=== PATIENT | male | born 1995 | race Caucasian/White ===

== ENCOUNTER 2017-07-26 18:18 | Emergency (ER) | payer MEDICAID ==
[~2017-07-26] VITALS: Ht 162.6 cm; Wt 136.1 kg
[~2017-07-26 18:18] MED LIST: ADDERALL20 MG PO; ADDERALL7.5 MG PO; ELIMITE 5%60 GM/TUBE TP; KEFLEX 250250 MG/5 M PO; KEFLEX 250MG.250 MG PO; ZOFRAN4 MG PO; Zofran4 MG PO
--- NOTE | 2017-07-26 18:33 | Emergency Room Report ---
History of Present Illness Time Seen by 1832 Presenting Problem in Triage Pt arrived: Presenting Problem: Onset of symptoms date/time:/ or onset unknown for: Treatment Prior to Arrival: [employer] Provided by: Sepsis Risk Assessment: Temp: B/P: MAP: Pulse: Resp: Recent fever? Clinical Suspician of Infection? Mental Status: Sepsis Risk: Have you (or family members/close friends) recently traveled outside the [place]? If Yes, where/when: Have you had exposure to infectious disease within the past month? TB? Other? 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 Worse with bending and lifting. There is no swelling no nausea no vomiting no abdominal pain. There is no radiating pain to the lower extremity weakness or numbness or tingling. Is no loss of urine and bowel control. No testicular mass or penile discharge. Source patient, RN notes reviewed Exam Limitations no limitations ALLERGIES Coded Allergies: NO KNOWN ALLERGIES (07/26/17) Home Medications Active Scripts Ondansetron (Zofran Odt) 4 MG PO Q6HP PRN nausea and vomiting 7 Days Prov: 03/11/15 History Medical History General Angina: No CT: No Hypertension? Yes Hyperlipidemia? No CHF? No COPD? No Asthma? Yes CVA? No Seizures? No Diabetes? No GB Disease: No Hepatitis? No MRSA? No TB? No Cancer? 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 Tonsils Family History Family Hx Diabetes No Hypertension No Cancer No TB No Social History Alcohol Alcohol: No Review of Systems All Other Systems Reviewed and Negative Constitutional no symptoms reported Eyes no symptoms reported ENT no symptoms reported. Respiratory no symptoms reported Cardiovascular no symptoms reported Gastrointestinal no symptoms reported Genitourinary no symptoms reported. Musculoskeletal see HPI, joint pain Skin no symptoms reported Psychiatric/Neurological no symptoms reported Physical Exam Vital Signs Vital Signs Date Time Temp Pulse Resp B/P Pulse O2 O2 Flow FiO2 Ox Delivery Rate 07/26 1824 98.3 85 18 152/95 99 - WBC >12,000 or <4,000 or 10% bands? 2 or more SIRS Criteria Met? B/P:152/95 MAP:114 Creatinine >2.0? UA output<0.5ml/kg/hr for 2 hrs? Platelet count >100,000? Lactate >2.0mmol/1? INR >1.2 or PTT > than 60 sec? Evidence of Organ Dysfunction? Provider documented clinical suspician of infection? N Sepsis Criteria Count: 0 Sepsis Risk: Low Sepsis Risk General Appearance normal appearance, WD/WN Eye Exam - bilateral eye normal exam, bilateral eye PERRL, bilateral eye EOMI Ear, Nose, Throat hearing grossly normal, normal ENT inspection Neck normal inspection, non-tender, supple, full range of motion Respiratory Status Yes: trachea midline, chest symmetrical, non tender chest. No: respiratory distress. Lung Sounds bilateral: normal breath sounds, lungs clear. Cardiovascular normal exam, regular rate/rhythm, no peripheral edema, no gallop, no JVD, no murmur, no rub, normal peripheral pulses Peripheral Pulses Pulses normal Yes Gastrointestinal normal bowel sounds, normal exam, non tender, soft, no organomegaly Back normal inspection, no CVA tenderness, no vertebral tenderness Extremities normal range of motion, normal inspection, normal capillary refill, no calf tenderness, no pedal edema, AREA OF MAXIMUM TENDERNESS OVER THE INGUINAL LIGAMENT. nO PALPABLE MASSES HERNIA. pAIN WAS MAXIMUM AT 90 DEGREE HIP FLEXION. Male Genitalia normal genitalia, no hernia, circumcised, NORMAL PENIS CIRCUMCISED NO DISCHARGE. nORMAL TESTICLES NO HERNIA. 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 Medical Decision Making LABS/Meds/Orders Pt receiving controlled substance in ED? No Departure Departure Time of Disposition 1840 Disposition DC Home or Self Care(routine) Clinical Impression Primary Impression: Inguinal strain Secondary Impressions: Intertrigo Condition STABLE Referrals Rach SIMPSON,Tal Brunson (Family) Additional Instructions observe for signs of nausea vomiting and abdominal pain OBSERVE Weakness and numbness of the lower extremity REST MOTRIN 600 MG OFF WORK X 3 DAY The patient reportedly to me that the pain is worse when he bends and lifts. He is to avoid any movement causes pain. Follow-up with the primary care physician in the morning. Discharge Counseling Counseled pt/family regarding diagnosis, medications/RX, home care, follow up needs Prescriptions Current Visit Scripts Ibuprofen (MOTRIN 800MG (generic) Tablet) 800 MG PO Q8HP PRN PAIN #21 TAB NYSTATIN (Nystatin Topical Powder 30GM) 30 GM TP Q6 #1 POW Ref 1 ED Critical Care Critical Care No If Critical Care minutes are documented, the time involved in the performance of seperately reportable procedures was not counted toward critical care time documented. I directly delivered medical care to this critically ill and/or injured patient. Timely evaluation and treatment was necessary to address the significant organ system(s) dysfunction present in this patient. at [id number]
[2017-07-26] MEDS ORDERED: NYSTATIN TO30 GM/BOT TP (18:44)
[2017-07-26] MEDS ORDERED: IBU800 MG PO (18:44)
[2017-07-26 18:54] VITALS: BP 152/95
== END 2017-07-26 18:57 | disposition home or self-care (01) ==
LOC: ER 18:18
DX: K40.90 Unilateral inguinal hernia, without obstruction or gangrene, not specified as recurrent (principal); I10 Essential (primary) hypertension; J45.909 Unspecified asthma, uncomplicated; E66.01 Morbid (severe) obesity due to excess calories; Z68.43 Body mass index [BMI] 50.0-59.9, adult

== ENCOUNTER 2017-08-09 19:40 | Emergency (ER) | payer MEDICAID ==
[~2017-08-09] VITALS: Ht 162.6 cm; Wt 122.5 kg
[~2017-08-09 19:40] MED LIST changes: +IBU800 MG PO; +NYSTATIN TO30 GM/BOT TP
--- NOTE | 2017-08-09 20:15 | Emergency Room Report ---
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 N Clinical Suspician of Infection? N Mental Status: 1 - Regular (Normal Baseline) Sepsis Risk:Possible Sepsis Risk Have you (or family members/close friends) recently traveled outside the [place]? N If Yes, where/when: Have you had exposure to infectious disease within the past month? N TB? Other? Specify: Source patient, RN notes reviewed, family, old records Exam Limitations no limitations Comment over the last week with feeling dizzy and turner with no neuro sx and no fever and dizzyness inc with mov Cardiac Chest Pain Chest pain indicative of cardiac No Timing/Duration this evening Severity moderate ALLERGIES Coded Allergies: No Known Allergies (08/09/17) Home Medications Reported Medications No Known Home Medications History Medical History General CAD? No Angina: No AL: No Hypertension? Yes Hyperlipidemia? No CHF? No DVT? No PE? No COPD? No Asthma? Yes Anemia? No GERD? No Gastric ulcers? No GI Bleed? No Hernia? No Thyroid Problems? No Hypothyroidism? No CVA? No Seizures? No Diabetes? No Renal Insuffiency? No End Stage Renal Disease? No UTI? No Stones? No BPH? No GB Disease: No Nephritic Syndrome? No Asplenia? No Hepatitis? No Sickle Cell Disease? No Arthritis? No Migraines? No Cataracts? No Glaucoma? No MRSA? No HIV? No TB? No Anxiety? No Depression? No Cancer? No More? 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 Tonsils Family History Family Hx Diabetes No Hypertension No Cancer No TB No Social History Smoking Hx Smoker: Never Smoker Tobacco: No Alcohol Alcohol: No Drugs none Review of Systems All Other Systems Reviewed and Negative Constitutional denies fever Eyes denies drainage ENT denies: ear discharge, epistaxis, throat pain. Respiratory denies cough, denies shortness of breath, denies wheezing Cardiovascular see HPI, chest pain, denies palpitations, denies syncope Gastrointestinal see HPI, denies abdominal pain, nausea, denies vomiting Genitourinary denies: dysuria, frequency, hesitancy, hematuria. Musculoskeletal denies back pain, denies joint pain, denies neck pain Skin denies rash Psychiatric/Neurological see HPI, headache, denies seizure Physical Exam Vital Signs Vital Signs Date Time Temp Pulse Resp B/P Pulse O2 O2 Flow FiO2 Ox Delivery Rate 08/093 87 18 119/73 95 08/09 2029 98.6 105 18 179/117 95 08/09 1955 98.6 126 20 154/126 98 08/09 1950 98.7 135 20 150/100 99 - WBC >12,000 or <4,000 or 10% bands? 2 or more SIRS Criteria Met? B/P:179/117 MAP:135 Creatinine >2.0? UA output<0.5ml/kg/hr for 2 hrs? Platelet count >100,000? Lactate >2.0mmol/1? INR >1.2 or PTT > than 60 sec? Evidence of Organ Dysfunction? Provider documented clinical suspician of infection? N Sepsis Criteria Count: 2 Sepsis Risk: Possible Sepsis Risk General Appearance no apparent distress Eye Exam - bilateral eye PERRL, bilateral eye EOMI Ear, Nose, Throat normal ENT inspection Neck supple Respiratory Status No: respiratory distress. Lung Sounds bilateral: lungs clear. 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 No Results/Orders Laboratory Tests 08/09/172106: Urine Color YELLOW, Urine Appearance CLEAR, Urine pH 7.5, Ur Specific [place] 1.015, Urine Protein NEGATIVE, Urine Ketones NEGATIVE, Urine Blood TRACE-INTACT, Urine Nitrate NEGATIVE, Urine Bilirubin NEGATIVE, Urine Urobilinogen 0.2, Ur Leukocyte Esterase NEGATIVE, Urine RBC OCC, Urine WBC OCC, Ur Squamous Epith Cells OCC, Amorphous Sediment 1+, Urine Bacteria 1+, Urine Mucus 1+, Urine Glucose NEGATIVE 08/09/172034: Hemoglobin A1c 5.1 08/09/172034: Sodium 137, Potassium 3.7, Chloride 99, Carbon Dioxide 32, BUN 13, Creatinine 0.9, Estimated Creat Clear 223 H, Estimated GFR (MDRD) 106, Glucose 107 H, Calcium 9.6, Total Bilirubin 0.4, AST 20, ALT 41, Alkaline Phosphatase 100, Creatine Kinase 64, CK-MB (CK-2) Rel Index 0.8, CK and CKMB Interp < 0.5, Troponin I < 0.02, Total Protein 8.6 H, Albumin 4.3, Globulin 4.3 H, Albumin/ Globulin Ratio 1.0 L, WBC 9.9, RBC 5.26, Hgb 15.8, Hct 46.3, MCV 88.0, RDW 12.5 , Plt Count 333, MPV 6.9 L, Gran % 69.8, Gran # 6.9, Lymphocytes % 24.6, Monocytes % 4.6, Eosinophils % 0.6, Basophils % 0.4, Lymphocytes # 2.4, Monocytes # 0.5, Eosinophils # 0.1, Basophils # 0.0, PUBS MCHC 34.2, MCH 30.1 Current Medication Orders Sig/Julian Start time Last Medication Dose Route Stop Time Status Admin Clonidine HCl 0.1 MG ONCE ONE 08/09 2145 DC 08/09 PO 08/09 Sodium Chloride 10 ML PRN PRN 08/09 2015 AC IV 08/10 2007 Orders Procedure Date/time Status DIET-NOTHING BY MOUTH 08/[address] SINUS (MAX-FACIAL W/O CONT) 08/[address] HEAD W/O CONTRAST 08/[address] SCAN REQ 08/09 2037 Complete URINALYSIS/COMPLETE 08/09 2036 Complete GLYCOHEMOGLOBIN (A1C) 08/09 2036 Complete CHEST-PORTABLE 08/09 2010 Active 12 LEAD EKG-MARCEL (INITIAL) 08/09 2007 Active ELECTROCARDIOGRAM REQUEST 08/09 2007 Active IV SALINE LOCK 08/09 2007 Active COMPLETE METABOLIC PANEL 08/09 2007 Complete CBC WITH AUTO DIFF 08/09 2007 Complete CARDIAC ENZYMES 08/09 2007 Complete CM/EKG CM/emulsion coater Rhythm Sinus Tachycardia EKG non-spec. ST/Twave chgs XRAY/CT/US XRAY/CT/US 1 CT head, sinus CT interpretation by discussed w/radiologist Time results known: 2136 CT Results normal/NAD XRAY/CT/US 2 XRAY chest XR interpretation by reviewed by me Xray Results normal/NAD Departure Departure Time of Disposition 2220 Disposition DC Home or Self Care(routine) Clinical Impression Primary Impression: Dizziness Secondary Impressions: HTN (hypertension) Qualifiers: Hypertension type: unspecified Qualified Code: I10 - Essential ( primary) hypertension Condition STABLE Referrals Rach SIMPSON,Tal Brunson (Family) Patient Instructions DI for Dizziness-Nonvertigo Additional Instructions see pcp for eval and follow up and discuss bp Discharge Counseling Counseled pt/family regarding diagnosis, test results, follow up needs Prescriptions Current Visit Scripts No Known Home Medications ED Critical Care Critical Care No at 2222
[2017-08-09 20:57] LABS: HEMOGLOBIN 15.8 g/dL (14.1-18.0); LYMPH # 2.4 K/mm3 (0.7-4.5); LYMPH % 24.6 % (10-50)
[2017-08-09 21:14] LABS: URINE BILIRUBIN - DIPSTICK NEGATIVE (NEG); URINE BLOOD TRACE-INTACT (NEG)
[2017-08-09 21:22] LABS: BUN 13 mg/dL (7-18)
[2017-08-09 21:27] LABS: GFR (ESTIMATED) 106 ML/MIN (>60)
[2017-08-09 21:39] LABS: URINE SQUAMOUS CELLS OCC #/hpf (OCC)
[2017-08-09 22:34] VITALS: BP 185/107
--- NOTE | 2017-08-10 04:24 | RADIOLOGY REPORT PS360 ---
CHEST-PORTABLE HISTORY: CHEST PAIN ORDERING PHYSICIAN: Lazaro Loyd MD PATIENT AGE: 22 years COMPARISON: 06/26/2011 FINDINGS: The cardiomediastinal silhouette and pulmonary vascularity are within normal limits. The lungs are clear without infiltrates, suspicious nodules, or pleural effusions. No acute bony abnormalities. IMPRESSION: Negative chest, no acute finding
--- NOTE | 2017-08-10 04:58 | RADIOLOGY REPORT PS360 ---
CT HEAD W/O CONTRAST HISTORY: HEADACHE ORDERING PHYSICIAN: Lazaro Loyd MD PATIENT AGE: 22 years COMPARISON: 07/03/2017 TECHNIQUE: Axial images obtained without contrast. Brain and bone windows reviewed. FINDINGS: No midline shift, mass effect, intracranial hemorrhage, hydrocephalus, or extra-axial fluid collection is evident. The calvarium has an unremarkable appearance. No mastoid effusion. The visualized paranasal sinuses are unremarkable. IMPRESSION: Negative CT head without contrast. No acute finding.
--- NOTE | 2017-08-10 05:02 | RADIOLOGY REPORT PS360 ---
CT SINUS (MAX-FACIAL W/O CONT) CLINICAL INDICATION: HEADACHE ORDERING PHYSICIAN: Lazaro Loyd MD PATIENT AGE: 22 years COMPARISON: None TECHNIQUE:Axial, sagittal, and coronal images are generated and reviewed without contrast COMPARISON: None FINDINGS:No sinus air-fluid level or significant mucosal thickening is evident. The ostiomeatal units are patent. There is a small right pia bullosa with leftward nasal septal deviation causing some narrowing of the left nasal canal. Small nasal septal spur projecting toward the left. There is an impacted right maxillary wisdom tooth and there are bilateral impacted posterior mandibular molars. The TMJs have an unremarkable appearance.2 shotty cervical nodes are present bilaterally. Unremarkable orbits. IMPRESSION: 1. Mild left nasal septal deviation with septal spur and small right pia bullosa 2. Unremarkable sinuses. 3. Bilateral impacted molars
--- OUTSIDE RECORDS SUMMARY | 2017-08-11 17:57 | External Medical Summary Rpt | CCD ---
Author Author , EAMON KNUTSON Address Unknown Phone [email or web address] Care Team Providers Care Access Service Representative Name Role Phone [facility], Unavailable Unavailable [facility] # Unavailable Unavailable [id number], [facility] # [id number] Purpose Continuity of Care Document - 01-15-2010 through 2016 Allergies, Adverse Reactions, Alerts Type Allergy to substance Adverse Reaction to Substance Substance Reaction Severity NO KNOWN ALLERGIES Unknown Unknown Medications Na ND Rx Da Fi Fi Am Da Di Ph RX Ph St me C No te ll ll ou ys ag ar # ys at rm s nt no ma ic us Or Da si cy ia de te s n re d SO 00 03 0 No DI 40 -0 UM 97 7- Lo 98 20 ng CH 30 13 er LO 9 RI Ac DE ti ve 0. 9% SO LUCERO TI ON Sa 63 03 0 No li 80 -0 ne 70 7- Lo 10 20 ng Fl 07 13 er us 5 h Ac 10 ti ML ve Sy ri ng e ON 00 03 0 No DA 64 -0 NS 16 7- Lo ET 08 20 ng RO 02 13 er N 5 HC Ac L ti 4 ve MG /2 ML AL MA 00 03 0 No PA 90 -0 P 41 7- Lo 32 98 20 ng 5 26 13 er MG 1 Ac TA ti BL ve ET Sa 63 03 0 No li 80 -0 ne 70 7- Lo 10 20 ng Fl 07 13 er us 5 h Ac 10 ti ML ve Sy ri ng e AD 54 10 10 0 30 30 WA 22 AR Ac DE 09 -1 -1 .0 L- 20 NO ti RA 20 2- 2- 00 MA 66 LD ve LL 38 20 20 RT 8 70 11 11 RI XR 1 PH CH AR AR 20 MA D CY W MG # CA 10 PS 05 UL 91 E AD 54 08 08 0 30 30 WA 22 AR Ac DE 09 -3 -3 .0 L- 20 NO ti RA 20 0- 0- 00 MA 45 LD ve LL 38 20 20 RT 1 70 11 11 RI XR 1 PH CH AR AR 20 MA D CY W MG # CA 10 PS 05 UL 91 E AD 54 07 07 0 30 30 WA 22 AR Ac DE 09 -0 -0 .0 L- 20 NO ti RA 20 7- 7- 00 MA 18 LD ve LL 38 20 20 RT 2 70 11 11 RI XR 1 PH CH AR AR 20 MA D CY W MG # CA 10 PS 05 UL 91 E AD 54 04 04 0 30 30 WA 22 AR Ac DE 09 -1 -1 .0 L- 19 NO ti RA 20 6- 6- 00 MA 77 LD ve LL 38 20 20 RT 8 70 11 11 RI XR 1 PH CH AR AR 20 MA D CY W MG # CA 10 PS 05 UL 91 E AZ 00 04 04 1 6. 5 WA 71 AR Ac IT 78 -1 -1 00 L- 15 NO ti HR 11 6- 6- 0 MA 47 LD ve OM 49 20 20 RT 6 YC 66 11 11 RI IN 8 PH CH AR AR 25 MA D 0 CY W MG # TA 10 BL 05 ET 91 AD 54 03 03 0 30 30 WA 22 AR Ac DE 09 -0 -1 .0 L- 19 NO ti RA 20 8- 1- 00 MA 56 LD ve LL 38 20 20 RT 9 70 11 11 RI XR 1 PH CH AR AR 20 MA D CY W MG # CA 10 PS [address] 00 01 01 0 30 30 WA 71 RI Ac RA 00 -0 -0 .0 L- 01 SH ti TT 23 8- 8- 00 MA 67 ER ve ER 23 20 20 RT 9 A 93 11 11 RI 60 0 PH CH AR AR MG MA D CY CA # PS UL 10 E 05 91 VE 00 03 03 2 18 30 CL 21 RI Ac NT 17 -2 -2 .0 IN 29 SH ti OL 30 0- 0- 00 IC 89 ER ve IN 68 20 20 22 10 10 PH RI HF 0 AR CH A MA AR 90 CY D MC LL G C IN GUZMAN LE R AD 00 03 03 2 60 30 CL 21 RI Ac VA 17 -2 -2 .0 IN 29 SH ti IR 30 0- 0- 00 IC 88 ER ve 69 20 20 25 60 10 10 PH RI 0- 0 AR CH 50 MA AR CY D DI SK LL US C Vital Signs 01-02-2013 09:54 Name Value Interpretat Reference Comment ion Range BP 86 mm[Hg] Diastolic BP Systolic 160 mm[Hg] Heart 88 /min Rate/Pulse O2% 98 % Respiratory 16 /min Rate 01-02-2013 09:01 Name Value Interpretat Reference Comment ion Range Body 99.3 [degF] Temperature BP 99 mm[Hg] Diastolic BP Systolic 137 mm[Hg] Heart 97 /min Rate/Pulse O2% 98 % Respiratory 20 /min Rate Results Labs Lab Lab Date Result Refere Interp Status Commen Order Detail nces retati t Range on COMPREHENSIVE METABOLIC PANEL (01-02-2013 09:05) Glucose 88 74-106 complet 013 mg/dL ed Bld-mCn 09:05 c BUN 12 7-18 complet Bld-mCn 013 mg/dL ed c 09:05 Creat 1.1 0.8-1.3 complet SerPl-m 013 mg/dL ed Cnc 09:05 ESTIMAT 162 50-200 complet ED 013 ML/MIN ed CREATIN 09:05 INE CLEARAN CE Sodium 139 136-145 complet SerPl-s 013 mmoL/L ed Cnc 09:05 Potassi 4.0 3.5-5.1 complet um 013 mmoL/L ed SerPl-s 09:05 Cnc Chlorid 101 98-107 complet e 013 mmoL/L ed SerPl-s 09:05 Cnc CO2 30 21.0-32 complet SerPl-s 013 mmoL/L .0 ed Cnc 09:05 Calcium 9.0 8.5-10. complet 013 mg/dL 1 ed SerPl-m 09:05 Cnc Prot 7.8 6.4-8.2 complet SerPl-m 013 gm/dL ed Cnc 09:05 Albumin 4.1 3.4-5.0 complet 013 gm/dL ed SerPl-m 09:05 Cnc Globuli 3.7 1.3-3.2 complet n 013 gm/dL ed Ser-mCn 09:05 c Albumin 1.1 UNK 1.1-1.8 complet /Glob 013 ed SerPl-m 09:05 Rto Bilirub 0.5 0.2-1.0 complet 013 mg/dL ed SerPl-m 09:05 Cnc AST 16 U/L 15-37 complet SerPl-c 013 ed Cnc 09:05 ALT 46 U/L 30-65 complet SerPl-c 013 ed Cnc 09:05 ALP 117 U/L 50-136 complet SerPl-c 013 ed Cnc 09:05 Amylase SerPl-cCnc (01-02-2013 09:05) Amylase 01-02- 67 U/L 25-115 complet 013 ed SerPl-c 09:05 Cnc LIPASE (01-02-2013 09:05) LIPASE 105 U/L 73-393 complet 013 ed 09:05 CBC with AUTO DIFF (01-02-2013 09:05) WBC # 01-02-2 8.0 4.5-13. complet Bld 013 K/MM3 0 ed Auto 09:05 RBC # 01-02-2 5.48 4.6-6.2 complet Bld 013 M/mm3 ed Auto 09:05 Hgb 17.0 14.1-18 complet Bld-mCn 013 g/dL .0 ed c 09:05 Hct Fr 49.1 % 42.0-52 complet Bld 013 .0 ed 09:05 MCV RBC 01-02- 89.6 fl 82.2-97 complet 013 .8 ed 09:05 MCH RBC 31.0 pg 27-31.2 complet Qn 013 ed Auto 09:05 MEAN 34.6 31.8-35 complet CORPUSC 013 g/dl .4 ed ULAR 09:05 HGB CONC RDW RBC 01-02-2 13.1 % 11.5-17 complet Auto 013 .5 ed 09:05 Platele 287 142-424 complet t Bld 013 K/mm3 ed Ql 09:05 Manual MEAN 6.7 fl 7.4-10. complet PLATELE 013 4 ed T 09:05 VOLUME Granulo 79.9 % 37.0-80 complet cytes 013 .0 ed Fr Bld 09:05 Auto LYMPH % 03-07-2 13.9 % 10-50 complet 013 ed 09:05 Monocyt -07-2 5.1 % complet es Fr 013 ed Bld 09:05 Auto Eosinop 03-07-2 0.8 % 0.1-12. complet hil Fr 013 0 ed Bld 09:05 Auto Basophi -07-2 0.3 % 0.1-2.0 complet ls Fr 013 ed Bld 09:05 Auto Granulo -07-2 6.4 1.3-8.0 complet cytes # 013 K/mm3 ed Bld 09:05 Auto Lymphoc -07-2 1.1 0.7-4.5 complet ytes Fr 013 K/mm3 ed Bld 09:05 Auto Monocyt -07-2 0.4 0.1-1.0 complet es # 013 K/mm3 ed Bld 09:05 Auto Eosinop 07-2 0.1 0.0-0.4 complet hil # 013 K/mm3 ed Bld 09:05 Auto Basophi 07-2 0.0 0-0.2 complet ls # 013 K/MM3 ed Bld 09:05 Auto URINALYSIS/COMPLETE (01-02-2013 08:45) URINE 01-02-2 YELLOW YELLOW complet COLOR 013 ed 08:45 URINE 01-02-2 CLEAR CLEAR complet APPEARA 013 ed NCE 08:45 URINE 01-02-2 NEGATIV NEG complet GLUCOSE 013 E ed - 08:45 DIPSTIC K URINE 01-02-2 NEGATIV NEG complet BILIRUB 013 E ed IN - 08:45 DIPSTIC K URINE 01-02-2 NEGATIV NEG complet KETONE 013 E mg/dL ed 08:45 URINE 01-02-2 Greater 1.005-1 complet SPECIFI 013 than .030 ed C 08:45 or GRAVITY equal to 1.030 URINE 01-02-2 1+ NEG complet BLOOD 013 ed 08:45 URINE 01-02-2 6.0 UNK 5.0-8.5 complet PH 013 ed 08:45 URINE 01-02-2 NEGATIV NEG complet PROTEIN 013 E mg/dL ed - 08:45 DIPSTIC K URINE 01-02-2 0.2 NEG complet UROBILI 013 E.U./dL ed NOGEN - 08:45 DIPSTIC K URINE 03-07-2 NEGATIV NEG complet NITRATE 013 E ed - 08:45 DIPSTIC K URINE NEGATIV NEG complet LEUK 013 E ed ESTERAS 08:45 E URINE 3-5 0 complet RBC 013 rbc/hpf ed 08:45 URINE 3-5 OCC complet SQUAMOU 013 #/hpf ed S CELLS 08:45 URINE TRACE O complet BACTERI 013 ed A 08:45 Encounters Encounter Start End Date Code Location Performer Type Date Emergency [place] (ER) 3 08:38 3 09:58 [facility] Kevan Pettit
--- OUTSIDE RECORDS SUMMARY | 2017-08-11 17:57 | External Medical Summary Rpt | CCD ---
Author Author , EAMON KNUTSON Address Unknown Phone [email or web address] Care Team Providers Care Installer Apprentice Name Role Phone [facility], Unavailable Unavailable [facility] # Unavailable Unavailable [id number], [facility] # [id number] Purpose Continuity of Care Document - 01-15-2010 [...] [place] (ER) 3 08:38 3 09:58 [facility] Kevan Pettit
--- OUTSIDE RECORDS SUMMARY | 2017-08-11 17:59 | External Medical Summary Rpt | CCD ---
Author Author , EAMON Organization [facility] Address Unknown Phone [email or web address] Immunization Name Date Rout CVX Reac Dose Comm Prov Is Faci e tion ent ider Refu lity Give sed n Tdap 06-0 115 999 Hist H149 No H149 , 5-20 oric Adso 07 al rbed Info rmat ion - Sour ce Unsp ecif ied DTaP 03-2 107 999 Hist H149 No H149 , UF 8-20 oric 00 al Info rmat ion - Sour ce Unsp ecif ied MMR 03-2 3 999 Hist H149 No H149 8-20 oric 00 al Info rmat ion - Sour ce Unsp ecif ied Yosi 03-2 10 999 Hist H149 No H149 o-IP 8-20 oric V 00 al Info rmat ion - Sour ce Unsp ecif ied
--- OUTSIDE RECORDS SUMMARY | 2017-08-11 17:59 | External Medical Summary Rpt ---
Author Author EAMON Liu, EAMON Liu Organization [employer] Address Unknown Phone Unavailable
--- OUTSIDE RECORDS SUMMARY | 2017-08-11 17:59 | External Medical Summary Rpt | CCD ---
Author Author , EAMON Organization [facility] Address Unknown Phone [email or web address] Immunization Name Date Rout CVX Reac Dose [...]
--- OUTSIDE RECORDS SUMMARY | 2017-08-11 17:59 | External Medical Summary Rpt | CCD ---
Author Author , EAMON Organization EAMON Address Unknown Phone [email or web address] Care Team Providers Care Stemming Machine Operator Name Role Phone Trisha BLISS MD PSC, A Unavailable Unavailable Balbir BLISS MD PSC ANJUR-KAPALI TONG, Unavailable Unavailable ANJUR-KAPALI TONG ANJUR-KAPALI TONG, Unavailable Unavailable ANJUR-KAPALI TONG ARNOLD YUSUF, ARNOLD Unavailable Unavailable YUSUF ARNOLD YUSUF, ARNOLD Unavailable Unavailable YUSUF AYARAM, NONA, AYARAM, Unavailable Unavailable NONA PARADISESON FRANCISCO, BESSON Unavailable Unavailable [facility], Unavailable [facility] CHAYA SALINAS, Unavailable Unavailable CHAYA SALINAS KING LARKIN, Unavailable Unavailable KING LARKIN JAMES P, Unavailable Unavailable DELBERT LOW JR ELZ, Unavailable Unavailable JR YINKA TRONCOSO GAINEY Unavailable Unavailable ANKUR THOMAS, Unavailable Unavailable ANKUR THOMAS LINDA, Unavailable Unavailable VERONICA LUDWIG RONDAL E, Unavailable Unavailable RIP BARROS GRAY ROB Unavailable Unavailable [facility] Unavailable Unavailable [facility] Unavailable Unavailable INC, [facility] Unavailable Unavailable [facility] , [facility] Unavailable Unavailable [facility], [facility] RENE HOLBROOK, Unavailable Unavailable RENE HOLBROOK KLEIN [facility] Unavailable Unavailable [facility] Unavailable Unavailable SERVICES, [facility], Unavailable [id number], Unavailable Unavailable [id number] SUAREZ SALINAS, Unavailable Unavailable SUAREZ [facility], Unavailable Unavailable [facility] # Unavailable Unavailable [id number], [facility] # [id number] KATHY STEEN Unavailable Unavailable RUTHY HEATH A Unavailable Unavailable Trisha BLISS WRIGHT, Unavailable Unavailable A C Purpose Continuity of Care Document - 12-07-2007 through 2016 Problems Code Diagnosis DOS Provider Status [id number] CONTUSION 07-03-2017 [facility] HEAD [facility] INITIAL ENCOUNTER [id number] STRAIN 07-03-2017 [facility], & TENDON PLLC NECK LEVL INIT ENC 4019 UNSPECIFIED 03-11-[address] [facility] P N 5589 OTH&UNSPEC 03-11-2015 [place] [facility] ITIS&COLITI S 5718 OTHER 03-11-2015 [facility] C LIVER DISEASE 53081 NAUSEA WITH 03-11-2015 [facility] 20964 ABDOMINAL 03-11-2015 [place] PAIN OTHER MEDICAL SPECIFIED IMAGING ASS SITE 4871 INFLUENZA 03-02-2014 [facility] GOLDBERG WITH OTHER RESPIRATORY MANIFESTATI ONS 81941 UNS 03-02-2014 [facility] GOLDBERG GASTRITIS&G ASTRODUODIT IS W/O MENTION HEMORR 3829 UNSPECIFIED 01-20-2014 [facility] YUSUF OTITIS MEDIA 40035 ESOPHAGEAL 01-06-2014 ARNOLD YUSUF REFLUX 4619 ACUTE 11-27-2013 [facility] YUSUF SINUSITIS, UNSPECIFIED 89723 CHEST PAIN 09-10-2013 ANJUR-KAPAL UNSPECIFIED I TONG 55553 VARIANTS 10-04-2011 [facility] GOLDBERG MIGRAINE NEC INTRACT MIGRAINE W/[place] [address] OTHER 06-29-2011 [facility] DYSRHYTHMIA S 7852 UNDIAGNOSED 06-29-2011 [facility] 7850 UNSPECIFIED 06-26-2011 [facility] 7851 PALPITATION 06-26-2011 [facility] P V232 12-20-2010 A Balbir BLISS WITH PSC HISTORY OF 0088 INTESTINAL 09-01-2010 A Balbir BLISS INFECTION PSC DUE TO OTHER ORGANISM NEC V202 ROUTINE 12-25-2009 A Balbir BLISS OR PSC CHILD HEALTH CHECK 01112 NERVOUSNESS 09-15-2009 A Balbir BLISS MD PSC 6929 CONTACT 08-04-2009 A Balbir BLISS DERMATITIS& PSC OTHER [place] DUE UNSPEC CAUSE V0481 NEED 07-29-2009 [facility] PROPHYLACTI HEALTH C CENTRAL VACCINATION BANK ACCT &INOCULATIO N FLU 3671 MYOPIA 07-28-2009 RENE HOLBROOK V531 FITTING&ADJ 07-28-2009 [facility] OPTICAL USTMENT OF SPECTACLES& CONTACT LENSES 67777 UNSPECIFIED 06-27-2009 [facility] INFECTION SERVICES IN CCE & ASSOCIATES UNS SITE 71911 FEVER 06-27-2009 [facility] UNSPECIFIED [facility] 7840 HEADACHE 06-26-2009 A Balbir BLISS MD [facility] 0340 STREPTOCOCC 03-11-2009 [facility] AL SORE [facility] 21626 OBESITY, 03-06-2009 A Balbir BLISS UNSPECIFIED [facility] 4011 ESSENTIAL 03-06-2009 A Balbir BLISS HYPERTENSIO [facility] N, BENIGN 920 CONTUSION 12-16-2008 A Balbir BLISS OF FACE [facility] SCALP AND NECK EXCEPT EYE 1330 SCABIES 10-05-2008 [facility] 7242 LUMBAGO 03-16-2008 [facility] 5997 HEMATURIA 02-17-2008 [facility] 4660 ACUTE 12-07-2007 A Balbir BLISS BRONCHITIS [facility] Medications Na ND Rx Da Fi Fi Am Da Di Ph RX Ph St me C No te ll ll ou ys ag ar # ys at rm s nt no ma ic us Or Da si cy ia de te s n re d AD 54 10 10 0 30 30 [...] # PS UL 10 E 05 91 AD 00 03 03 2 60 30 CL 21 RI Ac VA 17 -2 -2 .0 IN 29 SH ti IR 30 0- 0- 00 IC 88 ER ve 69 20 20 25 60 10 10 PH RI 0- 0 AR CH 50 MA AR CY D DI SK LL US C VE 00 03 03 2 18 30 CL 21 RI Ac NT 17 -2 -2 .0 IN 29 SH ti OL 30 0- 0- 00 IC 89 ER ve IN 68 20 20 22 10 10 PH RI HF 0 AR CH A MA AR 90 CY D MC LL G C IN GUZMAN LE R RI 68 01 01 00 20 4 CL 20 RI Ac OM 38 -1 -2 .0 IN 90 SH ti ET 20 9- 8- 00 IC 78 ER ve GUZMAN 04 20 20 ZI 10 10 10 PH RI NE 1 AR CH MA AR 25 CY D MG TA BL ET PE 00 10 10 01 60 7 CL 20 RI Ac RM 47 -0 -2 .0 IN 22 SH ti ET 20 7- 2- 00 IC 33 ER ve HR 24 20 20 IN 26 09 09 PH RI 0 AR CH 5% MA AR CY D CR EA M CE 00 09 09 00 20 10 CL 20 RI Ac FD 78 -1 -2 .0 IN 07 SH ti IN 12 4- 4- 00 IC 03 ER ve IR 17 20 20 66 09 09 PH RI 30 0 AR CH 0 MA AR MG CY D CA PS UL E 60 09 09 00 18 5 CL 20 RI Ac 25 -1 -2 0. IN 07 SH ti 80 4- 4- 00 IC 06 ER ve 23 20 20 0 91 09 09 PH RI 6 AR CH MA AR CY D IB 53 08 09 00 60 20 CL 19 MO Ac UP 74 -2 -1 .0 IN 97 SE ti RO 60 9- 0- 00 IC 38 S ve FE [address] N 60 09 09 PH EP 80 1 AR HE 0 MA N MG CY A TA BL ET RI 68 08 09 00 30 7 CL 19 MO Ac OM 38 -2 -1 .0 IN 97 SE ti ET 20 9- 0- 00 IC 37 S ve GUZMAN [address] ZI 10 09 09 PH EP NE 1 AR HE MA N 25 CY A MG TA BL ET ST 00 04 08 01 30 30 CL 19 RI Ac RA 00 -0 -2 .0 IN 13 ti TT 23 7- 7- 00 IC 75 ER ve ER 23 20 20 A 93 09 09 PH RI 60 0 AR CH MA AR MG CY D CA PS UL E CE 00 07 07 00 21 7 RI 79 GA Ac PH 09 -1 -3 .0 TE 14 IN ti AL 33 1- 0- 00 83 EY ve EX 14 20 20 AI IN [address] 1 PH CH 25 AR AE 0 M L MG #3 S 93 CA 8 PS UL E CE 68 05 05 00 30 10 CL 19 GA Ac PH 18 -1 -2 0. IN 37 IN ti AL 00 4- 1- 00 IC 54 EY ve EX 12 20 20 0 IN [address] 1 AR CH 25 MA AE 0 CY L MG S /5 ML MERAZ SP HY 60 04 04 00 12 6 CL [address] 43 -0 -2 0. IN 13 ti OC 20 7- 3- 00 IC 77 ER ve OD 45 20 20 0 ON 51 09 09 PH RI E- 6 AR CH HO MA AR MA CY D TR OP IN E SY RU P NA 00 04 04 00 17 15 CL 19 RI Ac SO 08 -0 -2 .0 IN 13 ti NE 51 7- 3- 00 IC 74 ER ve X 28 20 20 50 80 09 09 PH RI 1 AR CH MC MA AR G CY D NA SA L SP RA Y 00 04 04 00 26 16 CL 19 RI Ac 14 -0 -2 .0 IN 13 ti 31 7- 3- 00 IC 76 ER ve 47 20 20 70 09 09 PH RI 1 AR CH MA AR CY D ST 00 04 04 00 30 30 CL 19 RI Ac RA 00 -0 -2 .0 IN 13 SH ti TT 23 7- 3- 00 IC 75 ER ve ER 23 20 20 A 93 09 09 PH RI 60 0 AR CH MA AR MG CY D CA PS UL E PE 45 12 12 00 60 15 CL 18 GO Ac RM 80 -0 -1 .0 IN 35 BL ti ET 20 8- 8- 00 IC 06 E ve HR 26 20 20 RO IN 93 08 08 PH ND 7 AR AL 5% MA E CY CR EA M ST 00 01 05 01 30 30 CL 16 No Ac RA 00 -2 -0 .0 IN 34 t ti TT 23 6- 8- 00 IC 20 Av ve ER 23 20 20 ai A 93 08 08 PH la 60 0 AR bl MA e MG CY CA PS UL E VE 00 01 03 00 18 10 CL 16 No Ac NT 17 -2 -2 .0 IN 34 t ti OL 30 6- 6- 00 IC 21 Av ve IN 68 20 20 ai 22 08 08 PH la HF 0 AR bl A MA e 90 CY MC G IN GUZMAN LE R 00 02 03 00 12 3 CL 16 No Ac 60 -0 -2 0. IN 44 t ti 31 9- 6- 00 IC 69 Av ve 79 20 20 0 ai 95 08 08 PH la 8 AR bl MA e CY ST 00 01 03 00 30 30 CL 16 No Ac RA 00 -2 -2 .0 IN 34 t ti TT 23 6- 6- 00 IC 20 Av ve ER 23 20 20 ai A 93 08 08 PH la 60 0 AR bl MA e MG CY CA PS UL E AD 00 01 03 00 60 30 CL 16 No Ac VA 17 -2 -2 .0 IN 34 t ti IR 30 6- 6- 00 IC 22 Av ve 69 20 20 ai 25 60 08 08 PH la 0- 0 AR bl 50 MA e CY DI SK US AZ 59 02 03 00 46 5 CL 16 No Ac IT 76 -0 -2 .0 IN 44 t ti HR 23 9- 6- 00 IC 70 Av ve OM 14 20 20 ai YC 00 08 08 PH la IN 1 AR bl MA e 20 CY 0 MG /5 ML MERAZ SP 60 02 03 00 12 3 CL 16 No Ac 25 -0 -2 0. IN 44 t ti 80 9- 6- 00 IC 71 Av ve 23 20 20 0 ai 91 08 08 PH la 6 AR bl MA e CY Immunization Name Date Rout CVX Reac Dose Comm Prov Is Faci e tion ent ider Refu lity Give sed n IIV3 10-0 141 GOLD[facility] No [facility]/ -20 [place] CO VACC 09 CO HEAL INE HEAL TH SPLI TH CENT T CENT RAL VIRU ER BANK S 0.5 ACCT ML DOSA GE IM USE Procedures Procedure [place] [address] [facility] ABDOMEN & 5 MEDICAL PELVIS IMAGING W/O ASS CONTRAST MATERIAL COMPREHEN 93275 [facility] SIVE 5 [facility] [place] [address] [facility] AMYLASE 5 [facility] INC INC BLOOD 37460 [facility] COUNT 5 [facility] COMPLETE INC INC AUTO&[place] [address] [facility] INFUSION 5 [facility] THERAPY/P INC INC ROPHYLAXI S /DX 1ST TO 1 [place] [address] [facility] INFUSION 5 [facility] THERAPY INC INC PROPHYLAX IS/DX EA HOUR THERAPEUT 29900 [facility] IC 5 [facility] INJECTION INC INC IV PUSH EACH NEW DRUG ECG 62901 UNIVERS UNIVERS ROUTINE 1 Y Y [facility] W/LEAST 12 LDS TRCG ONLY W/O I&R ECG 20212 ROSALIO SUAREZ ROUTINE 1 MEDICAL SALINAS ECG SERV W/LEAST FOUNDATIO 12 LDS I&R ONLY ECHO 75063 ROSALIO LUIS LIS TTHRC R-T 1 MEDICAL 2D SERV W/WOM-MOD FOUNDATIO E COMPL SPEC&COLR D ECG 75118 [facility] ROD ROUTINE 1 [facility] W/LEAST P 12 LDS I&R ONLY RADIOLOGI 88028 [place] [facility]A C 1 MEDICAL SALINAS EXAMINATI IMAGING ON CHEST ASS SINGLE VIEW FRONTAL BLOOD 78133 A C A C COUNT 0 RUTHY BLISS MD COMPLETE PSC PSC AUTO&AUTO DIFRNTL WBC IIV3 61898 [facility]/CO [facility] VACCINE 9 [facility] VIRUS 0.5 BANK ACCT ML DOSAGE IM USE OPHTH 76745 YUSEF HOLBROOK, MEDICAL 9 RENE A RENE A XM&EVAL COMPRHNSV ESTAB PT 1/> FITTING 68298 PAL OZIEL, SPECTACLE 9 OPTICAL VERONICA S XCPT APHAKIA MONOFOCAL FRAMES V2020 PAL OZIEL, PURCHASES 9 OPTICAL VERONICA 1 VISN V2103 PAL OZIEL, PLANO 9 OPTICAL VERONICA TO+/-4.00 D SPHER 0.12-2.00 [place] [address] [facility] MENDILOA STREPTOCO 9 [facility] CCUS INC INC GROUP A PHYSICAL 06077 [facility] THERAPY 8 [facility] EVALUATIO INC INC N THERAPEUT 51411 [facility] MENDI[facility]A IC PX 1/> 8 [facility] AREAS INC INC [place]ACH [address] [place] [address] [facility] /> AREAS 8 [facility] EACH 15 INC INC MIN NEUROMUSC REEDUCA MANUAL 70395 [facility] THERAPY 8 [facility] TQS 1/> INC INC REGIONS EACH 15 MINUTES URINLS 80639 Trisha MERCADO DIP 8 RUTHY SMIPSON C STICK/TAB PSC LET REAGNT NON-AUTO MICRSCPY URNLS DIP 67293 [facility] 8 [facility] STICK/TAB INC INC LET REAGENT AUTO MICROSCOP Y BLOOD 35424 [facility] COUNT 8 [facility] COMPLETE INC INC AUTO&AUTO DIFRNTL WBC CT PELVIS 72735 [facility] 8 [facility] [place] [address] [facility], ABDOMEN 8 [facility] [place] W/O IMAGING CONTRAST ASSOCIATE MATERIAL S 3D 04584 DONAV[facility]MUSCOGEEIgnacia LARKIN RENDERING 8 [facility]ICAL [facility] IMAGING W/INTERP& ASSOCIATE POSTPROC S DIFF WORK STATION BASIC 02195 [facility] METABOLIC 8 [facility] PANEL INC INC CALCIUM TOTAL CULTURE 26925 [facility] BACTERIAL 8 [facility] INC INC QUANTTATI VE COLONY COUNT URINE Encounters Encounter Start End Date Code Location Performer Type Date EMERGENCY 61635 SE THOMAS 7 7 [facility]IAN [facility] S, PLL T VISIT HIGH/URGE NT SEVERITY EMERGENCY 41273 [facility] TRONCOSO, 5 5 [facility] T VISIT P MODERATE SEVERITY EMERGENCY 02863 [facility] 5 5 [facility] INC T VISIT HIGH/URGE NT SEVERITY HOSPITAL [facility] - 5 5 [facility] T OFFICE 13691 [facility] SONPATIEN 4 4 YUSUF YUSUF T VISIT 15 MINUTES OFFICE 90396 [facility] SCHROEDEREN 4 4 YUSUF YUSUF T VISIT 15 MINUTES OFFICE 02396 [facility] NINA OUTPATIEN 4 4 YUSUF YUSUF T VISIT 15 MINUTES OFFICE 77244 [facility] NINA OUTPATIEN 4 4 YUSUF YUSUF T VISIT 15 MINUTES OFFICE 57319 [facility] NINA OUTPATIEN 4 4 YUSUF YUSUF T VISIT 15 MINUTES OFFICE 07826 [facility] NINA OUTPATIEN 4 4 YUSUF YUSUF T VISIT 15 MINUTES OFFICE 13329 [facility] NINA OUTPATIEN 4 4 YUSUF YUSUF T VISIT 15 MINUTES OFFICE 34308 [facility] NINA OUTPATIEN 4 4 YUSUF YUSUF T VISIT 15 MINUTES OFFICE 24996 ANJUR-MICHEAL ANJUR-MICHEAL OUTPATIEN 3 3 ALI TONG ALI TONG T NEW 45 MINUTES OFFICE 97685 [facility] SONPATIJEROME 1 1 YUSUF YUSUF T VISIT 15 MINUTES HOSPITAL [facility] 65831 [facility] PHELPS DEPT 1 1 EMERGENCY VISIT SERVICES HIGH SEVERITY& THREAT FUNCJ PERIODIC 89243 Trisha Rico PREVENTIV 1 1 RUTHY SIMPSON E MED EST PSC PATIENT 12-17YRS OFFICE 82343 Trisha Rico OUTPATIEN 0 0 RUTHY SIMPSON T VISIT PSC 15 MINUTES PERIODIC 80643 Trisha MERCADO PREVENTIV 0 0 RUTHY Mcgregor E MED EST PSC PATIENT 12-17YRS OFFICE 56483 Trisha MERCADO OUTPATIEN 9 9 RUTHY Mcgregor T VISIT PSC 15 MINUTES OFFICE 65510 Trisha MERCADO OUTPATIJEROME 9 9 RUTHY Mcgregor T VISIT PSC 15 MINUTES OFFICE 36402 Trisha MERCADO OUTPATIJEROME 9 9 RUTHY Mcgregor T VISIT PSC 15 MINUTES HOSPITAL [facility] - 9 9 [facility] OUTPATIEN INC T EMERGENCY 81137 [facility] 9 9 [facility] DEPARTMEN INC T VISIT LOW/MODER SEVERITY EMERGENCY 24875 [facility] LOW, 9 9 EMERGENCY [facility] DEPARTMEN SERVICES T VISIT MODERATE ASSOCIATE SEVERITY S OFFICE 70638 Trisha MERCADO OUTPATIJEROME 9 9 RUTHY Mcgregor T VISIT PSC 15 MINUTES EMERGENCY 57684 [facility] 9 9 [facility] DEPARTMEN INC T VISIT LOW/MODER SEVERITY EMERGENCY 41421 [facility] THOMAS, 9 9 [facility] T VISIT MODERATE ASSOCIATE SEVERITY S HOSPITAL [facility] - 9 9 [facility] OUTPATIEN INC T EMERGENCY 40412 [facility] THOMAS, 9 9 [facility] T VISIT HIGH/URGE ASSOCIATE NT S SEVERITY EMERGENCY 06277 [facility] 9 9 [facility] DEPARTMEN INC T VISIT LOW/MODER SEVERITY HOSPITAL [facility] - 9 9 [facility] OUTPATIEN INC T OFFICE 42608 Trisha MERCADO OUTPATIJEROME 9 9 RUTHY Mcgregor T VISIT PSC 15 MINUTES OFFICE 36803 Trisha MERCADO OUTPATIEN 9 9 RUTHY Mcgregor T VISIT PSC 15 MINUTES OFFICE 48122 Trisha MERCADO OUTPATIJEROME 9 9 RUTHY Mcgregor T VISIT PSC 15 MINUTES EMERGENCY 72644 SURAJ BARROS, [address] [facility] T VISIT ON MODERATE SEVERITY HOSPITAL [facility] - 8 8 [facility] OUTPATIEN INC T OFFICE 06629 Trisha MERCADO OUTPATIJEROME 8 8 RUTHY Mcgregor T VISIT PSC 15 MINUTES EMERGENCY 54921 [facility] 8 8 [facility] DEPARTMEN INC T VISIT MODERATE SEVERITY EMERGENCY 31245 [facility] DAVID, 8 8 [facility] T VISIT PROF SERV LOW/MODER SEVERITY HOSPITAL [facility] - 8 8 [facility] OUTPATIEN INC T OFFICE 01555 Trisha MERCADO OUTPATIJEROME 8 8 RUTHY Mcgregor T VISIT PSC 15 MINUTES
--- OUTSIDE RECORDS SUMMARY | 2017-08-11 17:59 | External Medical Summary Rpt | CCD ---
Author Author , EAMON Organization EAMON Address Unknown Phone [email or web address] Care Team Providers Care Aix Architect Name Role Phone Trisha BLISS MD PSC, [...] Unavailable RIP BARROS GRAY ROB Unavailable Unavailable [facility] Unavailable [facility]available [facility] Unavailable Unavailable INC, [facility] Unavailable Unavailable HOSPITAL , [facility] Unavailable Unavailable [facility], [facility] RENE HOLBROOK, Unavailable Unavailable RENE HOLBROOK [facility] Unavailable Unavailable [facility] Unavailable Unavailable SERVICES, [facility], Unavailable [facility]available [id number], Unavailable Unavailable [id number] SUAREZ SALINAS, Unavailable Unavailable SUAREZ [facility], Unavailable Unavailable [facility] # Unavailable Unavailable [id number], [facility] # [id number] KATHY STEEN Unavailable Unavailable RUTHY HEATH A Unavailable Unavailable Trisha BLISS WRIGHT, Unavailable Unavailable A C Purpose Continuity of Care Document - 12-07-2007 through 2016 Problems Code Diagnosis DOS Provider Status [id number] CONTUSION 07-03-2017 [facility], HEAD [facility] INITIAL ENCOUNTER [id number] STRAIN 07-03-2017 [facility]ASC [facility], & TENDON PLLC NECK LEVL INIT ENC 4019 UNSPECIFIED 03-11-2015 [facility] P N 5589 OTH&UNSPEC 03-11-2015 [facility] IT[facility]&COLITI S 5718 OTHER 03-11-2015 [facility] C LIVER DISEASE 44991 NAUSEA WITH 03-11-2015 [facility] 92222 ABDOMINAL 03-11-2015 [facility] PAIN OTHER MEDICAL SPECIFIED [facility]ING ASS SITE 4871 INFLUENZA 03-02-2014 [facility] GOLDBERG WITH OTHER RESPIRATORY MANIFESTATI ONS 06217 UNS 03-02-2014 [facility] GOLDBERG GASTRITIS&G ASTRODUODIT IS W/O MENTION HEMORR 3829 UNSPECIFIED 01-20-2014 [facility] YUSUF OTITIS MEDIA 39555 ESOPHAGEAL 01-06-2014 ARNOLD YUSUF REFLUX 4619 ACUTE 11-27-2013 [facility] YUSUF SINUSITIS, UNSPECIFIED 18721 CHEST PAIN 09-10-2013 ANJUR-KAPAL UNSPECIFIED I TONG 40523 VARIANTS 10-04-2011 [facility] GOLDBERG MIGRAINE NEC INTRACT MIGRAINE W/[place] [address] OTHER 06-29-2011 [facility] DYSRHYTHMIA S 7852 UNDIAGNOSED 06-29-2011 [facility] MURMURS 7850 UNSPECIFIED 06-26-2011 [facility] 7851 PALPITATION 06-26-2011 [facility] P V232 12-20-2010 A Balbir BLISS WITH PSC HISTORY OF 0088 INTESTINAL 09-01-2010 A Balbir BLISS INFECTION PSC DUE TO OTHER ORGANISM NEC V202 ROUTINE 12-25-2009 A Balbir BLISS OR PSC CHILD HEALTH CHECK 99467 NERVOUSNESS 09-15-2009 A Balbir BLISS MD PSC 6929 CONTACT 08-04-2009 A Balbir BLISS DERMATITIS& PSC OTHER ECZEMA DUE UNSPEC CAUSE V0481 NEED 07-29-2009 [facility] PROPHYLACTI HEALTH C CENTRAL VACCINATION BANK ACCT &INOCULATIO N FLU 3671 MYOPIA 07-28-2009 RENE HOLBROOK V531 FITTING&ADJ 07-28-2009 [facility] OPTICAL USTMENT OF SPECTACLES& CONTACT LENSES 36889 UNSPECIFIED 06-27-2009 [facility] INFECTION SERVICES IN CCE & ASSOCIATES UNS SITE 57116 FEVER 06-27-2009 [facility] UNSPECIFIED [facility] SERVICES [facility] 7840 HEADACHE 06-26-2009 A Balbir BLISS MD [facility] 0340 STREPTOCOCC 03-11-2009 [facility] AL SORE [facility]ROAT [facility] 01877 OBESITY, 03-06-2009 A Balbir BLISS UNSPECIFIED [facility] 4011 ESSENTIAL 03-06-2009 A Balbir BLISS HYPERTENSIO [facility] N, BENIGN 920 CONTUSION 12-16-2008 A Balbir BLISS OF FACE [facility] SCALP AND NECK EXCEPT EYE 1330 SCABIES 10-05-2008 [employer]™ 7242 LUMBAGO 03-16-2008 [facility] 5997 HEMATURIA 02-17-2008 [facility] 4660 ACUTE 12-07-2007 A Balbir BLISS BRONCHITIS [facility] Medications Na ND Rx Da Fi Fi [...] LL G C IN GUZMAN LE R ID 68 01 01 00 20 4 CL [...] N MG CY A TA BL ET ID 68 08 09 00 30 7 CL [...] 20 AI IN 50 09 09 D NM 1 PH CH 25 AR AE 0 M L MG #3 S 93 CA 8 PS UL E CE 68 05 05 00 30 10 CL 19 GA Ac PH 18 -1 -2 0. IN 37 IN ti AL 00 4- 1- 00 IC 54 EY ve EX 12 20 20 0 IN 40 09 09 PH NM 1 AR CH 25 MA AE 0 [...] Procedure [place] [address] [facility]LIN ABDOMEN & 5 MEDICAL PELVIS IMAGING W/O ASS CONTRAST MATERIAL COMPREHEN 67425 [facility] SIVE 5 [facility] [place] [address] [facility] AMYLASE 5 [facility] INC INC BLOOD 56843 [facility] COUNT 5 [facility] COMPLETE INC INC AUTO&[place] [address] [facility] INFUSION 5 [facility] THERAPY/P INC INC ROPHYLAXI S /DX 1ST [place] 1 [place] [address] [facility] INFUSION 5 [facility] THERAPY INC INC PROPHYLAX IS/DX EA HOUR THERAPEUT 88480 [facility] IC 5 [facility] INJECTION INC INC IV PUSH EACH NEW DRUG ECG 34599 UNIVERS UNIVERS ROUTINE 1 Y Y [facility] W/LEAST 12 LDS TRCG ONLY W/O I&R ECG 58463 ROSALIO SUAREZ ROUTINE 1 MEDICAL SALINAS ECG SERV W/LEAST [facility]OUND[facility] 12 LDS I&R ONLY ECHO 95501 ROSALIO LUIS LIS TTHRC R-T 1 MEDICAL 2D SERV W/WOM-MOD [facility] E COMPL SPEC&COLR D ECG 59925 [facility] ROD ROUTINE 1 [facility] W/LEAST P 12 LDS I&R ONLY RADIOLOGI 56838 [place]AY[place] C 1 MEDICAL SALINAS EXAMINATI IMAGING ON CHEST ASS SINGLE VIEW FRONTAL BLOOD 80397 A C A C COUNT 0 RUTHY BLISS MD COMPLETE PSC PSC AUTO&AUTO DIFRNTL WBC IIV3 84056 [facility]/CO [facility] VACCINE 9 [facility] CO [facility] VIRUS 0.5 BANK ACCT ML DOSAGE IM USE OPHTH 85620 YUSEF HOLBROOK, MEDICAL 9 RENE A RENE A XM&EVAL COMPRHNSV ESTAB PT 1/> FITTING 89557 PAL OZIEL, SPECTACLE 9 OPTICAL VERONICA S XCPT APHAKIA MONOFOCAL FRAMES V2020 PAL OZIEL, PURCHASES 9 OPTICAL VERONICA 1 VISN V2103 PAL OZIEL, PLANO 9 OPTICAL VERONICA TO+/-4.00 D SPHER 0.12-2.00 [place] [address] [facility] MENDI[facility] STREPTOCO 9 [facility] CCUS INC INC GROUP A PHYSICAL 47087 [facility] THERAPY 8 [facility] EVALUATIO INC INC N THERAPEUT 87369 MA[facility] MENDIOLA IC PX 1/> 8 [facility] AREAS INC INC [place]ACH 15 [place] [address] MA[facility] MENDIOLA /> AREAS 8 [facility] EACH 15 INC INC MIN NEUROMUSC REEDUCA MANUAL 95926 [facility] THERAPY 8 [facility] TQS 1/> INC INC REGIONS EACH 15 MINUTES URINLS 19767 Trisha MERCADO DIP 8 RUTHY SIMPSON C STICK/TAB PSC LET REAGNT NON-AUTO MICRSCPY URNLS DIP 70747 [facility] 8 [facility] STICK/TAB INC INC LET REAGENT AUTO MICROSCOP Y BLOOD 65161 [facility] MENDI[facility]A COUNT 8 [facility] COMPLETE INC INC AUTO&AUTO DIFRNTL WBC CT PELVIS 87036 [facility], W/O 8 [place] [place] [address] [facility], ABDOMEN 8 MEDICAL [place] W/O IMAGING CONTRAST ASSOCIATE MATERIAL S 3D 75309 [facility] LARKIN RENDERING 8 MEDICAL [facility] IMAGING W/INTERP& ASSOCIATE POSTPROC S DIFF WORK STATION BASIC 14749 [facility] MENDI[facility]A METABOLIC 8 [facility] PANEL INC INC CALCIUM TOTAL CULTURE 56150 [facility] MEND[facility] BACTERIAL 8 [facility] INC INC QUANTTATI VE COLONY COUNT URINE Encounters Encounter Start End Date Code Location Performer Type Date EMERGENCY 56153 SE THOMAS 7 7 PHYSICIAN [facility] S, PLL T VISIT HIGH/URGE NT SEVERITY EMERGENCY 42043 [facility] TRONCOSO, [facility] V[facility]IT P MODERATE SEVERITY EMERGENCY 17940 [facility] 5 5 [facility] INC T VISIT HIGH/URGE NT SEVERITY HOSPITAL [facility] - 5 5 [facility] SONPATIEN 4 4 YUSUF YUSUF T VISIT 15 MINUTES OFFICE 96994 [facility] SCHROEDEREN 4 4 YUSUF YUSUF T VISIT 15 MINUTES OFFICE 90925 [facility] NINA OUTPATIEN 4 4 YUSUF YUSUF T VISIT 15 MINUTES OFFICE 31504 [facility] NINA OUTPATIEN 4 4 YUSUF YUSUF T VISIT 15 MINUTES OFFICE 76341 [facility] NINA OUTPATIEN 4 4 YUSUF YUSUF T VISIT 15 MINUTES OFFICE 46564 [facility] NINA OUTPATIEN 4 4 YUSUF YUSUF T VISIT 15 MINUTES OFFICE 21349 [facility] NINA OUTPATIEN 4 4 YUSUF YUSUF T VISIT 15 MINUTES OFFICE 69037 [facility] NINA OUTPATIEN 4 4 YUSUF YUSUF T VISIT 15 MINUTES OFFICE 01330 ANJUR-MICHEAL ANJUR-MICHEAL OUTPATIEN 3 3 ALI TONG ALI TONG T NEW 45 MINUTES OFFICE 82369 [facility] SONPATIJEROME 1 1 YUSUF YUSUF T VISIT 15 MINUTES HOSPITAL UNIVERSIT - 1 1 [facility] T EMERGENCY 82437 [facility] PHELPS DEPT 1 1 EMERGENCY VISIT SERVICES HIGH SEVERITY& THREAT FUNCJ PERIODIC 08488 Trisha Rico PREVENTIV 1 1 RUTHY SIMPSON E MED EST PSC PATIENT 12-17YRS OFFICE 82421 Trisha Rico OUTPATIEN 0 0 RUTHY SIMPSON T VISIT PSC 15 MINUTES PERIODIC 56012 Trisha MERCADO PREVENTIV 0 0 RUTHY Mcgregor E MED EST PSC PATIENT 12-17YRS OFFICE 65165 Trisha MERCADO OUTPATIEN 9 9 RUTHY Mcgregor T VISIT PSC 15 MINUTES OFFICE 18800 Trisha MERCADO OUTPATIJEROME 9 9 RUTHY Mcgregor T VISIT PSC 15 MINUTES OFFICE 23419 Trisha MERCADO OUTPATIJEROME 9 9 RUTHY Mcgregor T VISIT PSC 15 MINUTES HOSPITAL [facility] - 9 9 [facility] OUTPATIEN INC T EMERGENCY 49396 [facility] 9 9 [facility] DEPARTMEN INC T VISIT LOW/MODER SEVERITY EMERGENCY 22636 [facility] LOW, 9 9 EMERG[facility]Y [facility] DEPARTMEN SERVICES T VISIT MODERATE ASSOCIATE SEVERITY S OFFICE 76601 Trisha MERCADO OUTPATIJEROME 9 9 RUTHY Mcgregor T VISIT PSC 15 MINUTES EMERGENCY 08154 [facility] 9 9 [facility] DEPARTMEN INC T VISIT LOW/MODER SEVERITY EMERGENCY 25159 [facility] THOMAS, 9 9 [facility] VISIT MODERATE ASSOCIATE SEVERITY S HOSPITAL [facility] - 9 9 [facility] OUTPATIEN INC T EMERGENCY 37637 [facility] THOMAS, 9 9 [facility] VIS[facility] HIGH/URGE ASSOCIATE NT S SEVERITY EMERGENCY 08303 [facility] 9 9 [facility] DEPARTMEN INC T VISIT LOW/MODER SEVERITY HOSPITAL [facility] - 9 9 [facility] OUTPATIEN INC T OFFICE 78104 Trisha MERCADO OUTPATIJEROME 9 9 RUTHY Mcgregor T VISIT PSC 15 MINUTES OFFICE 22085 Trisha MERCADO OUTPATIEN 9 9 RUTHY Mcgregor T VISIT PSC 15 MINUTES OFFICE 43879 Trisha MERCADO OUTPATIJEROME 9 9 RUHTY Mcgregor T VISIT PSC 15 MINUTES EMERGENCY 81666 SURAJ BARROS, 8 8 [facility] T VISIT ON MODERATE SEVERITY HOSPITAL [facility] - 8 8 [facility] OUTPATIEN INC T OFFICE 24097 Trisha MERCADO OUTPATIJEROME 8 8 RUTHY Mcgregor T VISIT PSC 15 MINUTES EMERGENCY 37648 [facility] 8 8 [facility] DEPARTMEN INC T VISIT MODERATE SEVERITY EMERGENCY 95492 [facility] DAVID, 8 8 [facility] T VISIT PROF SERV LOW/MODER SEVERITY HOSPITAL [facility] - 8 8 [facility] OUTPATIEN INC T OFFICE 91673 Trisha MERCADO OUTPATIJEROME 8 8 RUTHY Mcgregor T VISIT PSC 15 MINUTES
== END 2017-08-09 22:35 | disposition home or self-care (01) ==
LOC: UTC 19:40 → ER 19:46
PROVIDERS: Emergency Medicine
DX: R42 Dizziness and giddiness (principal); I10 Essential (primary) hypertension; J45.909 Unspecified asthma, uncomplicated